=== PATIENT | female | born 1990 | race Caucasian/White ===

== ENCOUNTER 2018-12-04 22:52 | Inpatient (IN) ==
--- OUTSIDE RECORDS SUMMARY | 2018-12-04 22:55 | External Medical Summary | Continuity of Care Document ---
:1990 Author Name Gerald Sims, Provider Address Unavailable Unavailable , Care Team Providers Name Role Phone Georgina Ureña Unavailable [email or web address] Justyna Sims, Naheed Unavailable [email or web address] Cervantes M.D., Nima Unavailable Unavailable Unavailable Unavailable Unavailable Assessments Assessed Problems:Acute sinusitis, recurrence not specified, unspecified location Problems Anxiety (300.00) (F41.9) BCP ( control pills) initiation (V25.01) (Z30.011) Episodic mood disorder (296.90) (F39) Encounter for routine gynecological examination (V72.31) (Z0 1.419) Counseling for initiation of control method (V25.02) ( Z30.09) Encounter for routine pelvic examination (V72.31) (Z01.419) Depression (311) (F32.9) Acute sinusitis, recurrence not specifie d, unspecified location (461.9) (J01.90) 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 Bethany Jansen Start: 23-Jul-2018 Quantity: 30 Refills: 0 Aspirin 81 81 MG Oral Tablet Delayed Release Bethany Jansen Start: 23-Jul-2018 Refills: 0 Multi-Vitamin Daily Oral Tablet; Take one tablet by mouth gustavo posadas. Start: 07-Sep-2015 Refills: 0 Procedures History of Oral Surgery Tooth Extraction Status: Completed History of Oral Surgery Tooth Extraction Status: Completed Counseling for initiation of control method BCP ( control pills) initiation History of Dilation And Curettage Status : Completed Immunizations IPV On: 07-Jan-1989 DTaP On: 07-Jan-1989 IPV On: 20-Mar-1989 DTaP On: 20-Mar-1989 IPV On: May-1989 DTaP On: May-1989 MMR On: 08-Feb-1990 IPV On: 18-Jun-1990 DTaP On: 18-Jun-1990 HIB On: 18-Jun-1990 Hepatitis B On: 10-Feb-1992 Hepatitis B On: 14-Mar-1992 IPV On: 15-Apr-1994 DTaP On: 15-Apr-1994 Hepatitis B On: 15-Apr-1994 MMR On: 10-Jan-2000 Varicella On: 31-Mar-2000 Decavac 5-2 LFU INJ On: 31-Mar-2000 HPV (Gardasil) On: 27-Oct-2006 Varicella On: 27-Jan-2007 Meningo (Menactra) On: 27-Jan-2007 Tdap (Adacel) On: 27-Jan-2007 Family History aunt Family history of Suicide Completion Status: Active Grandmother Family history of Ovarian Cancer (V16.41) Status: Active Mother Family history of Takotsubo Syndrome Status: Active Father Family history of Hypertension (V17.49) Status: Active Family history of hypothyroidism (V18.19) (Z83.49) Status: A ctive Social History - Smoking Status Unknown if ever smoked Never smoker Interventions Medication ChangesAmoxicillin 500 MG Oral Tablet - Start Plan of Treatment Planned Observations Planned Goals not documented Results No Known Results Results not documented Encounters Appointment; Georgina Baron CRNP 10-Dec-2017 14:30 Encounter Diagnosis: Problem not documented Appointment; Naheed Jansen M.D. 23-Jul-2018 10:45 Encounter Diagnosis: Problem not documented
[2018-12-04] MEDS ORDERED: OXYTOCIN 30 UNITS/500 ML BAG IV PRN ×2 (23:27→23:42)
[2018-12-04] MEDS ORDERED: LACTATED RINGER'S 1,000 ML IV PRN ×2 (23:27→23:42)
[2018-12-04] MEDS ORDERED: BUTORPHANOL TARTRATE 2 MG/ML VIAL IV PRN (23:30)
--- NOTE | 2018-12-04 23:38 | History & Physical Report ---
Date of Service December 04, 2018 Assessment & Plan (1) SROM (spontaneous rupture of membranes): 28 yo P1 at 40.1 wks with SROM/ PROM, uterine ctxs and Elevated BP Asymptomatic GBS negative FHR reassuring Plan admit, labs, IVF, Labetalol PO Start pitocin if no cervical change within next 2 hours All questions were answered (2) Elevated blood pressure affecting in third trimester, antepartum: History of Present Illness Chief Complaint: Leaking of fluid Primary Care Provider: Bernice Perales PA-C Patient is a 28 yo at 40.1 wks who felt a gush for fluid leaking at 2230 Has been trickling clear fluids since then'Mi,d cramps on and off, pain is 3/10 No VB No fever/ chills/ GLOVER/ Change in vision/ N&V/ epig or RUQ pain Her has been uncomplicated GBS neg Allergies Allergy/AdvReac Type Severity Reaction Status Date / Time Sulfa (Sulfonamide AdvReac Mild NAUSEA Verified 07/22/16 08:10 Antibiotics) shellfish derived AdvReac Unknown GASTROINTES Unverified 07/22/16 08:10 TINAL Home Medications Home Medications Medication Instructions Recorded Confirmed Type Multivit/Min/Iron/Fol Ac/Pren 1 tab PO DAILY #0 tab 08/23/15 History ( Vitamin) CHOLECALCIFEROL (VITAMIN D3) 1 tab PO DAILY 30 Days #30 tab 07/22/16 History CYANOCOBALAMIN (VITAMIN B12 500MCG) 500 mcg PO DAILY #0 tab 07/22/16 History DOCUSATE SODIUM (COLACE) 1 cap PO DAILY 15 Days #30 cap 07/22/16 History Pyridoxine (Vitamin B6) 100 mg PO DAILY #0 tab 07/22/16 History Ferrous Sulfate 1 tab PO DAILY #30 07/25/16 Rx Ibuprofen 600 mg PO Q4H PRN #30 tab 07/25/16 Rx Patient History OB History FT in 07/2016 by myself [employer] History Denies any STD's No h/o HSV/ GC/ Chlamydia Review of Systems All systems reviewed & are unremarkable except as noted in HPI & below Physical Exam Constitutional: WD/WN, vitals as above well developed and well nourished Musculoskeletal: LE: NT, mild edema, No Clonus, DTR 1+/1+ Genitourinary: Grossly ruptured, clear Cervix: 2/ 30%/ -3, ballotable head Results & Data Vital Signs (Past 12 Hours) Vital Signs Pulse BP 12/04/18 23:25 81 152/103 H 12/04/18 23:12 70 142/83 H 12/04/18 23:00 70 186/96 H 12/04/18 22:59 84 152/92 H Monitoring External Monitor Categ I Tocodynamometer Mild/ low amplitude ctxs q 1-2 min
[2018-12-04 23:53] LABS: Hematocrit (blood only) 33.3 % (37-47); Hemoglobin 11.9 g/dL (12.0-16.0); Mean Corpuscular Volume 98.2 fL (80-100); Mean Platelet Volume 10.4 fL (7.4-10.4); Platelet Count 222 K/uL (130-400); RDW Coefficient of Variation 14.4 % (11.5-14.5); RDW Standard Deviation 51.3 fL (36.4-46.3); Red Blood Count 3.39 M/uL (4.2-5.4); White Blood Count 7.16 K/uL (4.8-10.8)
[2018-12-04] MEDS: LABETALOL HCL 100 MG TAB PO SCH (23:54)
[2018-12-05 00:08] LABS: Partial Thromboplastin Ratio 0.9; Partial Thromboplastin Time 23.9 Seconds (21.0-31.0); Prothrombin Time 10.3 Seconds (9.0-12.0)
[2018-12-05 00:10] LABS: Albumin Level 2.6 gm/dl (3.4-5.0); BUN Creatinine Ratio 15.4 (10-20); Calcium 9.1 mg/dl (8.5-10.1); Creatinine Clr Calc Pharmacy 116.1 ml/min; Est GFR (Non-African American) 108.7
[2018-12-05 00:13] LABS: Albumin Globulin Ratio 0.8 (0.9-2); Bilirubin,Total 0.3 mg/dl (0.2-1); Globulin 3.3 gm/dl (2.5-4.0); Total Protein 5.9 gm/dl (6.4-8.2)
[2018-12-05 00:49] LABS: Mean Corpuscular Hgb Conc 35.7 g/dL (32-36)
[2018-12-05 01:23] LABS: Appearance Urine Clear (Clear); Bilirubin Urine Negative (Negative); Blood Urine Negative (Negative); Color Urine Yellow; Glucose Urine UA Negative (Negative); Ketones Urine Negative (Negative); Leukocyte Esterase Urine Negative (Negative); Nitrite Urine Negative (Negative); Protein Urine Negative (Negative); Specific Gravity Urine 1.008 (1.000-1.030); Urobilinogen Urine Negative (Negative); pH Urine 7.5 (4.5-7.5)
[2018-12-05] MEDS: LACTATED RINGER'S 1,000 ML IV SCH ×2 (03:26→09:28)
[2018-12-05] MEDS ORDERED: ePHEDrine sulfate 50 MG/ML AMP ONE (03:32)
[2018-12-05] MEDS ORDERED: BUPIVACAINE 0.25% 30 ML VIAL ONE (03:32)
[2018-12-05] MEDS ORDERED: fentaNYL citrate 100 MCG/2 ML VIAL ONE (03:32)
[2018-12-05] MEDS ORDERED: fentaNYL 2MCG/ML ROPIV 1.25MG/ML 100 ML BAG EPI ONE (03:33)
[2018-12-05] MEDS ORDERED: NALOXONE HCL 0.4 MG/1 ML VIAL/CARP IV PRN (03:52)
[2018-12-05] MEDS ORDERED: ONDANSETRON INJ 2 MG/ML 2 ML VIAL IV PRN (03:52)
[2018-12-05] MEDS ORDERED: NALBUPHINE HCL INJ 10 MG/ML AMP IV PRN (03:52)
[2018-12-05] MEDS ORDERED: fentaNYL 2MCG/ML ROPIV 1.25MG/ML 100 ML BAG EPI PRN (03:52)
[2018-12-05] MEDS ORDERED: NALOXONE HCL 1 MG in SODIUM CHLORIDE 0.9% 1000ML 1,000 ML IV PRN (03:52)
[2018-12-05] MEDS ORDERED: ePHEDrine sulfate 50 MG/ML AMP IV PRN (03:52)
[2018-12-05] MEDS ORDERED: LACTATED RINGER'S 1,000 ML IV PRN (03:52)
[2018-12-05] MEDS ORDERED: DiphenhydrAMINE HCL 50 MG/ML VIAL IV PRN (03:52)
--- NOTE | 2018-12-05 03:55 | Anesthesiology Consultation ---
Date of Service December 05, 2018 Assessment & Plan (1) Encounter for pre-operative examination: Chart Review Chart Review: Patient NOT seen in Pre Admission Testing and Acceptable Risk for Labor Epidural Consults Requested none History Height/Weight Height: 5 ft 5 in Weight: 79.832 kg Allergies Allergy/AdvReac Type Severity Reaction Status Date / Time Sulfa (Sulfonamide AdvReac Mild NAUSEA Verified 12/04/18 23:47 Antibiotics) shellfish derived AdvReac Unknown GASTROINTES Verified 12/04/18 23:47 TINAL Medications Home Medications Medication Instructions Recorded Confirmed Last Taken vit-iron fum-folic ac 1 tab PO DAILY 12/04/18 12/04/18 12/03/18 07:30 [ Vitamin] Active Medications Generic Name Dose Route Start Last Admin Trade Name Freq PRN Reason Stop Dose Admin Lactated Ringer's 1,000 mls @ 999 mls/hr 12/04/18 23:27 12/05/18 03:26 Lr IV 01/03/19 23:26 Infused .Q1H1M PRN Infusion Pre-Anesthesia Lactated Ringer's 1,000 mls @ 150 mls/hr 12/04/18 23:30 12/05/18 03:26 Lr IV 12/06/18 23:29 150 mls/hr .Q6H40M MELIA Administration Oxytocin 30 units in 500 mls @ 6 mls/hr 12/04/18 23:42 12/05/18 03:04 Pitocin IV 12/06/18 23:41 0.36 units/hr .Q24H PRN 6 mls/hr Labor Induction/Augmentation Titration Protocol 0.36 UNITS/HR Labetalol HCl 100 mg 12/04/18 23:26 12/04/18 23:54 Normodyne PO 01/03/19 23:25 100 mg BID MELIA Administration Past Medical History none Exercise / Class Metabolic Activity II 4-5 Yardwork/Stairs/Walk up hill Past Surgical History Surgical History H/O dilation and curettage Past Anesthesia History No Hx of Anesthesia Complications and No Family Hx of Anesthesia Complications History of PONV No Hx of PONV and No Hx of Motion Sickness Social History Smoking Status: Never smoker Hx Alcohol Use: No Hx Substance Use: No substance use type: does not use Physical Exam Vital Signs Last Vital Signs Temp 37.1 C 12/05/18 02:30 Pulse 76 12/05/18 04:14 Resp 16 12/05/18 02:30 BP 132/79 12/05/18 04:14 Pulse Ox 99 12/05/18 04:14 Testing Laboratory Results 12/04/18 23:38 12/04/18 23:38 Blood Type A Positive 12/04/18 23:38 Antibody Screen NEGATIVE 12/04/18 23:38 PT 10.3 Seconds (9.0-12.0) 12/04/18 23:38 INR 1.0 (0.9-1.1) 12/04/18 23:38 APTT 23.9 Seconds (21.0-31.0) 12/04/18 23:38 Urine Color Yellow 12/05/18 01:00 Urine Appearance Clear (Clear) 12/05/18 01:00 Urine pH 7.5 (4.5-7.5) 12/05/18 01:00 Ur Specific [place] 1.008 (1.000-1.030) 12/05/18 01:00 Urine Protein Negative (Negative) 12/05/18 01:00 Urine Glucose (UA) Negative (Negative) 12/05/18 01:00 Urine Ketones Negative (Negative) 12/05/18 01:00 Urine Nitrite Negative (Negative) 12/05/18 01:00 Ur Leukocyte Esterase Negative (Negative) 12/05/18 01:00
--- NOTE | 2018-12-05 08:34 | Obstetrical Progress Note ---
Date of Service December 05, 2018 Subjective Patient is comfortable received epidural for pain VSS Afebrile, BP's normalized Labs normal FHR had been categ I [place]; ctxs q 3 min, Pitocin at 6 miu/min VE: 3-4 cm/ 70%/ -2, coned head, IUPC is placed, pitocin was increased to 8 miu/min Mild ( 10 mvu) ctxs q 2-3 min AP: 28 yo P1 at 40.2 wks, SROM/ PROM since 2229 last night Augmentation with Pitocin No major cervical change Increase Pitocin till adequate ctx pattern IV AB if prolonged SROM Continue to monitor Results & Data Vital Signs (Past 12 Hours) Vital Signs Temp Pulse Resp BP Pulse Ox 12/05/18 08:24 79 100 12/05/18 08:19 81 99 12/05/18 08:14 92 H 100 12/05/18 08:09 125 H 98 12/05/18 08:07 88 118/74 12/05/18 08:04 83 99 12/05/18 07:59 85 100 12/05/18 07:54 101 H 99 12/05/18 07:52 86 129/83 12/05/18 07:49 80 99 12/05/18 07:44 73 100 12/05/18 07:39 76 98 12/05/18 07:36 36.9 C 75 18 124/81 12/05/18 07:34 64 98 12/05/18 07:29 63 98 12/05/18 07:24 70 98 12/05/18 07:21 75 130/83 12/05/18 07:19 77 100 12/05/18 07:14 71 97 12/05/18 07:09 69 99 12/05/18 07:07 67 142/86 H 12/05/18 07:04 72 100 12/05/18 06:59 68 98 12/05/18 06:54 85 100 12/05/18 06:51 74 127/86 12/05/18 06:49 76 100 12/05/18 06:44 106 H 100 12/05/18 06:39 94 H 100 12/05/18 06:36 80 116/78 12/05/18 06:34 71 100 12/05/18 06:30 37.0 C 18 05/05/19 06:29 99 H 100 05/05/19 06:24 105 H 100 05/05/19 06:21 66 126/79 05/05/19 06:19 93 H 99 05/05/19 06:14 76 98 05/05/19 06:09 73 98 05/05/19 06:07 67 121/71 05/05/19 06:04 72 98 05/05/19 06:00 18 05/05/19 05:59 74 99 05/05/19 05:54 101 H 100 05/05/19 05:51 75 124/76 05/05/19 05:49 82 98 05/05/19 05:44 98 H 98 05/05/19 05:39 92 H 98 05/05/19 05:37 72 129/76 05/05/19 05:34 74 98 05/05/19 05:29 104 H 98 05/05/19 05:24 73 98 05/05/19 05:21 100 H 119/82 05/05/19 05:19 63 97 05/05/19 05:14 63 98 05/05/19 05:09 68 98 05/05/19 05:06 98 H 116/83 05/05/19 05:04 70 99 05/05/19 05:00 18 05/05/19 04:59 67 99 05/05/19 04:54 92 H 100 05/05/19 04:51 68 137/88 05/05/19 04:49 99 H 100 05/05/19 04:45 18 05/05/19 04:44 94 H 100 05/05/19 04:39 73 99 05/05/19 04:36 93 H 123/85 05/05/19 04:35 18 05/05/19 04:34 86 99 05/05/19 04:32 82 127/83 05/05/19 04:29 90 98 05/05/19 04:25 94 H 18 125/87 05/05/19 04:24 37.0 C 129 H 18 128/90 99 05/05/19 04:21 101 H 122/81 05/05/19 04:20 18 05/05/19 04:19 120 H 99 05/05/19 04:16 70 132/85 05/05/19 04:15 18 05/05/19 04:14 76 132/79 99 05/05/19 04:12 73 138/95 12/05/18 04:10 68 136/91 12/05/18 04:09 86 100 12/05/18 04:07 84 90 12/05/18 04:04 97 H 99 12/05/18 03:59 86 100 12/05/18 03:54 84 100 12/05/18 03:49 78 100 12/05/18 03:30 18 12/05/18 02:31 85 139/88 12/05/18 02:30 37.1 C 16 12/05/18 01:32 77 144/96 H 12/05/18 01:30 18 12/05/18 00:57 37.1 C 67 18 126/82 12/05/18 00:41 68 140/88 12/05/18 00:26 77 140/83 12/05/18 00:16 71 132/86 12/05/18 00:06 79 130/94 12/04/18 23:55 91 H 131/94 12/04/18 23:46 84 141/97 H 12/04/18 23:25 81 152/103 H 12/04/18 23:12 70 142/83 H 12/04/18 23:07 36.9 C 84 18 152/92 H 12/04/18 23:00 36.9 C 70 18 186/96 H 12/04/18 22:59 84 152/92 H
--- NOTE | 2018-12-05 09:56 | Obstetrical Progress Note ---
Date of Service December 05, 2018 Subjective I was called patient felt palpitation and tachycardia on her right side She was positioned to left lateral and feels better No CP/SOB/ Dizziness/ GLOVER/ change in vision/ numbness or tingling She states she is nervous She has h/o situational anxiety but does not take anything for that Vital Signs Temp Pulse Resp BP Pulse Ox 12/05/18 09:54 78 144/92 H 99 12/05/18 09:49 76 141/93 H 100 12/05/18 09:44 78 99 12/05/18 09:43 83 152/96 H 12/05/18 09:39 72 100 12/05/18 09:34 82 100 12/05/18 09:29 95 H 100 12/05/18 09:24 101 H 100 12/05/18 09:22 94 H 142/93 H 12/05/18 09:19 109 H 100 12/05/18 09:14 118 H 99 12/05/18 09:09 131 H 99 12/05/18 09:06 80 123/75 12/05/18 09:04 132 H 99 12/05/18 08:59 118 H 99 12/05/18 08:54 100 H 100 12/05/18 08:51 96 H 116/71 12/05/18 08:49 76 100 12/05/18 08:44 76 97 12/05/18 08:39 68 100 12/05/18 08:36 123 H 112/68 12/05/18 08:34 74 100 12/05/18 08:31 93 H 89 L 12/05/18 08:29 84 99 12/05/18 08:24 79 100 12/05/18 08:19 81 99 12/05/18 08:14 92 H 100 12/05/18 08:09 125 H 98 12/05/18 08:07 88 118/74 12/05/18 08:04 83 99 12/05/18 07:59 85 100 12/05/18 07:54 101 H 99 12/05/18 07:52 86 129/83 12/05/18 07:49 80 99 12/05/18 07:44 73 100 12/05/18 07:39 76 98 12/05/18 07:36 36.9 C 75 18 124/81 05/05/19 07:34 64 98 05/05/19 07:29 63 98 05/05/19 07:24 70 98 05/05/19 07:21 75 130/83 05/05/19 07:19 77 100 05/05/19 07:14 71 97 05/05/19 07:09 69 99 05/05/19 07:07 67 142/86 H 05/05/19 07:04 72 100 05/05/19 06:59 68 98 05/05/19 06:54 85 100 05/05/19 06:51 74 127/86 05/05/19 06:49 76 100 05/05/19 06:44 106 H 100 05/05/19 06:39 94 H 100 05/05/19 06:36 80 116/78 05/05/19 06:34 71 100 05/05/19 06:30 37.0 C 18 05/05/19 06:29 99 H 100 05/05/19 06:24 105 H 100 05/05/19 06:21 66 126/79 05/05/19 06:19 93 H 99 05/05/19 06:14 76 98 05/05/19 06:09 73 98 05/05/19 06:07 67 121/71 05/05/19 06:04 72 98 05/05/19 06:00 18 05/05/19 05:59 74 99 05/05/19 05:54 101 H 100 05/05/19 05:51 75 124/76 05/05/19 05:49 82 98 05/05/19 05:44 98 H 98 05/05/19 05:39 92 H 98 05/05/19 05:37 72 129/76 05/05/19 05:34 74 98 05/05/19 05:29 104 H 98 05/05/19 05:24 73 98 05/05/19 05:21 100 H 119/82 05/05/19 05:19 63 97 05/05/19 05:14 63 98 05/05/19 05:09 68 98 05/05/19 05:06 98 H 116/83 05/05/19 05:04 70 99 05/05/19 05:00 18 05/05/19 04:59 67 99 05/05/19 04:54 92 H 100 05/05/19 04:51 68 137/88 05/05/19 04:49 99 H 100 12/05/18 04:45 18 12/05/18 04:44 94 H 100 12/05/18 04:39 73 99 12/05/18 04:36 93 H 123/85 12/05/18 04:35 18 12/05/18 04:34 86 99 12/05/18 04:32 82 127/83 12/05/18 04:29 90 98 12/05/18 04:25 94 H 18 125/87 12/05/18 04:24 37.0 C 129 H 18 128/90 99 12/05/18 04:21 101 H 122/81 12/05/18 04:20 18 12/05/18 04:19 120 H 99 12/05/18 04:16 70 132/85 12/05/18 04:15 18 12/05/18 04:14 76 132/79 99 12/05/18 04:12 73 138/95 12/05/18 04:10 68 136/91 12/05/18 04:09 86 100 12/05/18 04:07 84 90 12/05/18 04:04 97 H 99 12/05/18 03:59 86 100 12/05/18 03:54 84 100 12/05/18 03:49 78 100 12/05/18 03:30 18 12/05/18 02:31 85 139/88 12/05/18 02:30 37.1 C 16 12/05/18 01:32 77 144/96 H 12/05/18 01:30 18 12/05/18 00:57 37.1 C 67 18 126/82 12/05/18 00:41 68 140/88 12/05/18 00:26 77 140/83 12/05/18 00:16 71 132/86 12/05/18 00:06 79 130/94 12/04/18 23:55 91 H 131/94 12/04/18 23:46 84 141/97 H 12/04/18 23:25 81 152/103 H 12/04/18 23:12 70 142/83 H 12/04/18 23:07 36.9 C 84 18 152/92 H 12/04/18 23:00 36.9 C 70 18 186/96 H 12/04/18 22:59 84 152/92 H CVS S1S2 RRR, HR 70's ( was elevated on her right side) Lungs: CTAB Ext NT, no edema Pulse ox: 100% She is on monitor, sinus rhytm Most likely compression of great vessels but gravid uterus Will get ECG and continue to monitor SCD's Dr. Muniz is aware and here to see her Results & Data Vital Signs (Past 12 Hours) Vital Signs Temp Pulse Resp BP Pulse Ox 12/05/18 09:49 76 141/93 H 100 12/05/18 09:44 78 99 12/05/18 09:43 83 152/96 H 12/05/18 09:39 72 100 12/05/18 09:34 82 100 12/05/18 09:29 95 H 100 12/05/18 09:24 101 H 100 12/05/18 09:22 94 H 142/93 H 12/05/18 09:19 109 H 100 12/05/18 09:14 118 H 99 12/05/18 09:09 131 H 99 12/05/18 09:06 80 123/75 12/05/18 09:04 132 H 99 12/05/18 08:59 118 H 99 12/05/18 08:54 100 H 100 12/05/18 08:51 96 H 116/71 12/05/18 08:49 76 100 12/05/18 08:44 76 97 12/05/18 08:39 68 100 12/05/18 08:36 123 H 112/68 12/05/18 08:34 74 100 12/05/18 08:31 93 H 89 L 12/05/18 08:29 84 99 12/05/18 08:24 79 100 12/05/18 08:19 81 99 12/05/18 08:14 92 H 100 12/05/18 08:09 125 H 98 12/05/18 08:07 88 118/74 12/05/18 08:04 83 99 12/05/18 07:59 85 100 12/05/18 07:54 101 H 99 12/05/18 07:52 86 129/83 12/05/18 07:49 80 99 12/05/18 07:44 73 100 12/05/18 07:39 76 98 12/05/18 07:36 36.9 C 75 18 124/81 05/05/19 07:34 64 98 05/05/19 07:29 63 98 05/05/19 07:24 70 98 05/05/19 07:21 75 130/83 05/05/19 07:19 77 100 05/05/19 07:14 71 97 05/05/19 07:09 69 99 05/05/19 07:07 67 142/86 H 05/05/19 07:04 72 100 05/05/19 06:59 68 98 05/05/19 06:54 85 100 05/05/19 06:51 74 127/86 05/05/19 06:49 76 100 05/05/19 06:44 106 H 100 05/05/19 06:39 94 H 100 05/05/19 06:36 80 116/78 05/05/19 06:34 71 100 05/05/19 06:30 37.0 C 18 05/05/19 06:29 99 H 100 05/05/19 06:24 105 H 100 05/05/19 06:21 66 126/79 05/05/19 06:19 93 H 99 05/05/19 06:14 76 98 05/05/19 06:09 73 98 05/05/19 06:07 67 121/71 05/05/19 06:04 72 98 05/05/19 06:00 18 05/05/19 05:59 74 99 05/05/19 05:54 101 H 100 05/05/19 05:51 75 124/76 05/05/19 05:49 82 98 05/05/19 05:44 98 H 98 05/05/19 05:39 92 H 98 05/05/19 05:37 72 129/76 05/05/19 05:34 74 98 05/05/19 05:29 104 H 98 05/05/19 05:24 73 98 05/05/19 05:21 100 H 119/82 05/05/19 05:19 63 97 05/05/19 05:14 63 98 05/05/19 05:09 68 98 05/05/19 05:06 98 H 116/83 05/05/19 05:04 70 99 05/05/19 05:00 18 05/05/19 04:59 67 99 05/05/19 04:54 92 H 100 05/05/19 04:51 68 137/88 05/05/19 04:49 99 H 100 05/05 04:45 18 05/12/19 04:44 94 H 100 0505 04:39 73 99 0505 04:36 93 H 123/85 0505 04:35 18 12/05/18 04:34 86 99 05 04:32 82 127/83 0505 04:29 90 98 05 04:25 94 H 18 125/87 0505 04:24 37.0 C 129 H 18 128/90 99 12/05/18 04:21 101 H 122/81 0505 04:20 18 05 04:19 120 H 99 12/05/18 04:16 70 132/85 0505 04:15 18 12/05/18 04:14 76 132/79 99 12/05/18 04:12 73 138/95 05 04:10 68 136/91 05 04:09 86 100 05 04:07 84 90 12/05/18 04:04 97 H 99 12/05/18 03:59 86 100 0505 03:54 84 100 0505 03:49 78 100 0505 03:30 18 05 02:31 85 139/88 0505 02:30 37.1 C 16 12/05/18 01:32 77 144/96 H 12/05/18 01:30 18 12/05/18 00:57 37.1 C 67 18 126/82 0505 00:41 68 140/88 0505 00:26 77 140/83 0505 00:16 71 132/86 05/05 00:06 79 130/94 05 23:55 91 H 131/94 12/04/18 23:46 84 141/97 H 12/04/18 23:25 81 152/103 H 12/04/18 23:12 70 142/83 H 12/04/18 23:07 36.9 C 84 18 152/92 H 12/04/18 23:00 36.9 C 70 18 186/96 H 12/04/18 22:59 84 152/92 H
[2018-12-05] MEDS ORDERED: OXYTOCIN 30 UNITS/500 ML BAG IV PRN (11:08)
[2018-12-05] MEDS ORDERED: OXYCODONE/ACETAMINOPHEN 5mg/325mg TAB PO PRN (11:08)
[2018-12-05] MEDS ORDERED: SUPERCREAM 0.870% 15 GM JAR EXT PRN (11:08)
[2018-12-05] MEDS ORDERED: DIPHTHERIA/TETANUS/PERTUSSIS 0.5 ML SYR/VIAL IM ONE (11:08)
[2018-12-05] MEDS ORDERED: HYDROCORTISONE ACETATE 25 MG SUPP PR PRN (11:08)
[2018-12-05] MEDS ORDERED: BENZOCAINE 20% AER SPR 82.5 GM CAN EXT PRN (11:08)
--- NOTE | 2018-12-05 13:19 | Anesthesia Procedure Note ---
Date of Service December 05, 2018 Anesthesia Post Epidural Note Vital Signs Vital Signs: Temp Pulse Resp BP Pulse Ox 36.9 C 87 18 121/81 85 L 12/05/18 07:36 12/05/18 13:10 12/05/18 07:36 12/05/18 13:10 12/05/18 10:34 Notes Mental Status: alert / awake / arousable Patient Amnestic to Procedure: No Nausea / Vomiting: adequately controlled Pain: adequately controlled Airway Patency, RR, SpO2: stable & adequate BP & HR: stable & adequate Hydration State: stable & adequate Anesthetic Complications: no major complications apparent Epidural: Removed without complications and With tip intact Notes: Pt doing well. No more episodes of tachycardia. Denies having any CP, SOB, GLOVER, palpitations. Epidural cath removed without complications with tip intact. Epidural site looks clean and dry without signs of erythema or edema
[2018-12-05] MEDS: IBUPROFEN 600 MG TAB PO PRN ×2 (13:53→18:14)
[2018-12-05] MEDS: ACETAMINOPHEN 325 MG TAB PO PRN (19:05)
[2018-12-05] MEDS: DOCUSATE SODIUM 100 MG CAP PO SCH (21:10)
[2018-12-05] MEDS: LABETALOL HCL 100 MG TAB PO SCH (21:10)
--- NOTE | 2018-12-05 22:31 | Delivery Summary ---
DATE OF OPERATION: 12/05/2018 TIME OF DELIVERY OF BABY: 10:33 a.m. TIME OF DELIVERY OF PLACENTA: 10:54 a.m. DETAILS OF DELIVERY: The patient was found to be fully dilated and desired to push. She pushed through 2 contractions and head was . There was scarring on the posterior perineal area from the old repair in 2016 and it was holding the head. A small midline episiotomy was opened about 2 cm and head was delivered without difficulty. Shoulders were delivered with minimal traction. Baby was handed off to the mother where mouth and nose were suctioned. Cord was clamped x2 and cut at 1 minute delay. Cord blood was obtained. Then the vagina and perineum were checked for lacerations. There was only midline episiotomy which was opened earlier. Rectal exam was done. Excellent sphincter tone was noted and confirmed to be second degree. Gloves were changed and it was repaired with 2-0 Vicryl in a running locked fashion bringing the vaginal mucosa, bulbocavernosus muscles and perineal body muscles together. Skin in a subcuticular fashion. There was an oozing in the corner of this repair in the vagina. It was controlled with [id number] stitches x2 and excellent hemostasis was achieved. Placenta was found to be in the vagina, delivered spontaneous as intact and complete. Uterus was explored, found to be empty. Lower segment was cleared of all clots and debris. EBL was 200 mL and fundus was firm. The placenta was examined to be bilobed which was noted on the ultrasound. It was sent to pathology. Baby was a viable female , Apgars 9/10. Weight is 3513 gr. At the end of the procedure, sponge and lap, needle count was correct x2. No complications happened. I was present during whole procedure. I attest to the content of the Intraoperative Record and any orders documented therein. Any exceptions are noted below. MTDD
[2018-12-06] MEDS: IBUPROFEN 600 MG TAB PO PRN ×6 (00:09→22:25)
[2018-12-06] MEDS: ACETAMINOPHEN 325 MG TAB PO PRN (05:53)
[2018-12-06 06:06] LABS: Hematocrit (blood only) 23.3 % (37-47); Hemoglobin 8.3 g/dL (12.0-16.0); Mean Corpuscular Hgb Conc 35.6 g/dL (32-36); Mean Platelet Volume 9.9 fL (7.4-10.4); Platelet Count 153 K/uL (130-400); RDW Standard Deviation 53.8 fL (36.4-46.3); Red Blood Count 2.33 M/uL (4.2-5.4); White Blood Count 8.79 K/uL (4.8-10.8)
--- NOTE | 2018-12-06 08:01 | Obstetrical Progress Note ---
Date of Service December 06, 2018 Subjective doing well out of bed no SOB or dizziness passing gas tolerating diet well Physical Exam Constitutional: WD/WN, vitals as above comfortable Genitourinary: abdomen soft non-tender fundus firm no edema neg Yolie's tent d/c in AM Results & Data Vital Signs (Past 12 Hours) Vital Signs Temp Pulse Resp BP Pulse Ox 12/06/18 03:45 36.6 C 86 20 131/77 99 12/06/18 00:00 36.7 C 84 16 108/71 97 12/05/18 20:30 36.9 C 81 18 130/85 98
[2018-12-06] MEDS: PRENATAL VITAMIN 1 TAB PO SCH (08:44)
[2018-12-06] MEDS: DOCUSATE SODIUM 100 MG CAP PO SCH ×2 (08:44→20:04)
[2018-12-06] MEDS: LABETALOL HCL 100 MG TAB PO SCH ×3 (08:44→20:30)
[2018-12-06] MEDS ORDERED: BISACODYL 5 MG TABEC PO SCH (20:00)
[2018-12-07] MEDS: IBUPROFEN 600 MG TAB PO PRN ×2 (03:28→09:05)
[2018-12-07] MEDS ORDERED: FERROUS SULFATE 325 MG TAB PO SCH (08:00)
[2018-12-07 08:01] LABS: Hematocrit (blood only) 24.7 % (37-47); Hemoglobin 8.7 g/dL (12.0-16.0)
--- NOTE | 2018-12-07 08:05 | Obstetrical Progress Note ---
Date of Service December 07, 2018 Subjective Patient is seen and examined. She feels well, no complaints. Ambulating without dizziness Voiding without difficulty Tolerating regular diet with out N&V Bleeding is minimal No fever/ chills/ CP/ SOB/ N&V/ Leg pain Breast feeding without problems Vital Signs Temp Pulse Resp BP Pulse Ox 12/06/18 23:25 37 C 86 14 116/71 97 12/06/18 19:30 37 C 88 16 120/81 98 12/06/18 16:47 37 C 74 20 126/79 12/06/18 12:50 36 C L 72 20 118/78 12/06/18 08:30 37 C 87 20 120/76 98 12/07/18 Range/Units 07:43 Hgb 8.7 L (12.0-16.0) g/dL Hct 24.7 L (37-47) % PE: General: Alert, orientedx3, NAD Abd: soft, NT, fundus firm, below Umbilicus Perineum intact, Lochia rubra minimal Ext; NT, no edema AP: 28 yo s/p , ppd# 2 VSS Afebrile doing well Anemic: asymptomatic, d/c home with iron On Labetalol, morning BP pending BP's WNL Continue routine care All questions were answered Instructions were given when to call D/C home , f/u in office Results & Data Vital Signs (Past 12 Hours) Vital Signs Temp Pulse Resp BP Pulse Ox 12/06/18 23:25 37 C 86 14 116/71 97
[2018-12-07] MEDS ORDERED: LABETALOL HCL 100 MG TAB PO SCH (09:00)
[2018-12-07] MEDS ORDERED: BISACODYL 10 MG SUPP PR PRN (09:00)
[2018-12-07] MEDS: DOCUSATE SODIUM 100 MG CAP PO SCH (09:04)
[2018-12-07] MEDS: PRENATAL VITAMIN 1 TAB PO SCH (09:05)
== END 2018-12-07 11:30 | disposition home or self-care (01) | DRG 807 ==
LOC: OPB 22:52 → 4S1 22:53 → 4S2 12-05 17:02